=== PATIENT | female | born 1955 | race Hispanic/Latino ===

== ENCOUNTER 2019-01-11 13:53 | Outpatient (CLI) | payer MEDICARE ==
--- NOTE | 2019-01-13 07:48 | RAD ---
No major fracture was seen. The distal ends of the 8th and 9th ribs are somewhat irregular, possibly from old trauma. The adjacent left lung is clear. There are no effusions. IMPRESSION: No acute findings. Possible old trauma at the distal ends of the 8th and 9th ribs. POS: HOME
== END 2019-01-11 13:54 | disposition home or self-care (01) ==
LOC: BURRAD 13:53
PROVIDERS: ATTEND Physician Assistant
DX: R07.81 Pleurodynia (principal)

== ENCOUNTER 2019-04-27 09:21 | Outpatient (CLI) | payer MEDICARE ==
--- NOTE | 2019-04-27 20:46 | ULT ---
ABDOMINAL ULTRASOUND: 04/27/19 Ultrasonography of the abdomen was performed for evaluation of upper abdominal pain. The liver is sl ightly enlarged measuring 16.2 cm in oblique sagittal length. It might be slightly echo dense, but no focal hepatic lesions or dilated ducts could be seen. The gallbladder contains no stones or wall thi ckening. There is a trace of sludge in it. The common bile duct was slightly enlarged measuring 6 t o 7 mm in caliber. The spleen was normal in size. The right kidney is 11.8 cm long. It appears normal, but the lower pole was not seen well and patholo gy could be missed here. The left kidney was smaller, measuring 9.1 cm long. While I see no mass or o bstruction, this kidney was seen very well at all, so I am not comfortable ruling out the possibility of any further pathology. The aorta and inferior vena cava were unremarkable. IMPRESSION: 1. Very mild hepatomegaly without focal hepatic changes. 2. Trace of sludge in the gallbladder which may not be significant. 3. Slight enlargement of the common bile duct (6 to 7 mm). Significance unknown. 4. Kidneys seen rather poorly on this study, especially the left kidney and lower pole of the ri ght kidney. RECOMMENDATION: While there is nothing here dramatically positive, if the patient continues with pain or has urinary tract symptoms, a CT might be needed to better display the kidneys and take a second look at the panc reas and common bile duct. POS: HOME
== END 2019-04-27 09:22 | disposition home or self-care (01) ==
LOC: BURULT 09:21
PROVIDERS: ATTEND Physician Assistant Medical
DX: K29.50 Unspecified chronic gastritis without bleeding (principal); K21.9 Gastro-esophageal reflux disease without esophagitis; K59.00 Constipation, unspecified; R10.10 Upper abdominal pain, unspecified; R10.12 Left upper quadrant pain; R16.0 Hepatomegaly, not elsewhere classified; K83.8 Other specified diseases of biliary tract
CPT/HCPCS: 76700

== ENCOUNTER 2020-08-09 12:06 | Outpatient (CLI) | payer MEDICARE ==
--- NOTE | 2020-08-09 17:01 | RAD ---
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 No fracture or dislocation was seen. Two of the mid thoracic disc spaces, approximately T7-T8 and T8-T9, may be a bi t on the narrow side. IMPRESSION: Arthritic changes but no acute findings. POS: HOME
--- NOTE | 2020-08-09 17:07 | RAD ---
CERVICAL SPINE THREE VIEWS: 08/09/20 Comparison is made with a 01/25/07 study. No fracture, dislocation, or soft tissue swelling was seen. There is slight disc space narrowing at C5-C6 that probably was not present before. The C1 to dens di stance is normal. There are a few small osteophytes anteriorly, again more so than was seen in 2007. IMPRESSION: Mild arthritic changes with slight disc space narrowing at C5-C6. POS: HOME
--- NOTE | 2020-08-09 17:15 | RAD ---
LUMBAR SPINE THREE VIEWS: 08/09/20 Mild curvature of the spine convexed right could be positional. The SI joints are symmetrical. 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 The disc space at L5-S1 is essentially obliterated due to this. The other disc spaces are normal in height. No convincing fracture was seen. The only vertebra in que stion was L1, and while not seen optimally, there is certainly no large compression. Some small osteophytes are seen in the spine at several levels. IMPRESSION: Minor degenerative changes. POS: HOME
== END 2020-08-09 12:07 | disposition home or self-care (01) ==
LOC: BURRAD 12:06
PROVIDERS: ATTEND Physician Assistant
DX: M54.2 Cervicalgia (principal); M54.42 Lumbago with sciatica, left side; M54.6 Pain in thoracic spine; M47.816 Spondylosis without myelopathy or radiculopathy, lumbar region; M47.812 Spondylosis without myelopathy or radiculopathy, cervical region; M48.02 Spinal stenosis, cervical region; M47.814 Spondylosis without myelopathy or radiculopathy, thoracic region
CPT/HCPCS: 72040; 72072; 72100

== ENCOUNTER 2022-05-15 09:23 | Outpatient (CLI) | payer MEDICARE, OTHER | END 2022-05-15 09:24 | disposition home or self-care (01) | LOC: BURRAD 09:23 | PROVIDERS: ATTEND Family Medicine | DX: M25.561 Pain in right knee (principal); M25.562 Pain in left knee ==

== ENCOUNTER 2024-06-22 11:04 | Outpatient (CLI) | payer MEDICARE | END 2024-06-22 11:05 | disposition home or self-care (01) | LOC: BURRAD 11:04 | PROVIDERS: ATTEND Nurse Practitioner Family | DX: M79.605 Pain in left leg (principal) ==